=== PATIENT | male | born 1955 | race Caucasian/White ===

== ENCOUNTER 2020-02-20 17:02 | Inpatient (IN) | payer MEDICARE ==
[~2020-02-20] VITALS: Ht 165.1 cm; Wt 72.6 kg
[2020-02-20 18:10] LABS: BASOPHILS % 0.6 % (0.0-2.0); EOSINOPHILS % 1.5 % (0.0-5.0); HEMATOCRIT. 39.4 % (42.0-52.0); HEMOGLOBIN. 13.4 g/dL (14.0-18.0); LYMPHOCYTES % 27.2 % (20.0-50.0); MEAN CORPUSCULAR HEMOGLOBIN 27.9 pg (28.0-32.0); MEAN CORPUSCULAR VOLUME 81.7 fL (80.0-94.0); MONOCYTES % 5.1 % (2.0-8.0); NEUTROPHILS % 65.6 % (40.0-76.0); PLATELET 167 x1000/uL (130-400); RED BLOOD CELL COUNT 4.82 mill/uL (4.7-6.1); RED CELL DISTRIBUTION WIDTH 14.4 % (11.6-14.6)
[2020-02-20 18:16] LABS: CHLORIDE 104 mEq/L (98-107)
[2020-02-20 18:19] LABS: ETHANOL BLOOD < 10 mg/dL
[2020-02-20 18:24] LABS: CREATINE KINASE 109 IU/L (39-308)
[2020-02-20] MEDS ORDERED: DEXAMETHASONE 10 MG/ML VIAL IV ONE (20:45)
[2020-02-20] MEDS ORDERED: LEVETIRACETAM 500MG PREMIX 100 ML IV ONE (20:45)
[2020-02-20] MEDS ORDERED: NICARDIPINE 100 MG in SODIUM CHLORIDE 0.9% 60 ML IV PRN (21:00)
[2020-02-20 21:10] LABS: CLARITY URINE CLEAR (CLEAR); COLOR URINE YELLOW (YELLOW); KETONES URINE NEGATIVE (NEGATIVE); LEUKOCYTE ESTERASE URINE NEGATIVE (NEGATIVE); NITRITE URINE NEGATIVE (NEGATIVE); OCCULT BLOOD URINE NEGATIVE (NEGATIVE); PROTEIN URINE NEGATIVE (NEGATIVE); SPECIFIC GRAVITY URINE 1.021 (1.005-1.030); UROBILINOGEN URINE 0.2 E.U./dL (0.2-1.0)
[2020-02-20 21:19] LABS: *AMPHETAMINES SCREEN URINE NEGATIVE (NEGATIVE); *BARBITURATES SCREEN URINE NEGATIVE (NEGATIVE); *BENZODIAZEPINES SCREEN URINE NEGATIVE (NEGATIVE); *COCAINE SCREEN URINE NEGATIVE (NEGATIVE); METHADONE URINE SCREEN NEGATIVE (NEGATIVE); OPIATES URINE SCREEN NEGATIVE (NEGATIVE)
[2020-02-20 21:20] LABS: CANNABINOID URINE SCREEN NEGATIVE (NEGATIVE); PHENCYCLIDINE URINE SCREEN NEGATIVE (NEGATIVE)
[2020-02-20] MEDS ORDERED: IOHEXOL-350 100 ML BOTTLE ONE (21:46)
[2020-02-20] MEDS: DEXT 5%/LACTATED RINGERS 1,000 ML IV SCH (22:34)
[2020-02-20] MEDS: NICARDIPINE 100 MG in SODIUM CHLORIDE 0.9% 60 ML IV PRN (23:13)
[2020-02-21] VITALS (96 sets, daily range): BP systolic 80–160; BP diastolic 44–120
[2020-02-21] MEDS: INSULIN LISPRO 100 UNITS/ML SUBCUT SCH ×5 (00:49→23:20)
[2020-02-21] MEDS: BLOOD SUGAR DIAGNOSTIC STRIP TEST SCH ×5 (00:49→23:13)
[2020-02-21] MEDS: DEXAMETHASONE 4MG/ML 1ML VIAL IV SCH ×5 (00:49→23:17)
[2020-02-21] MEDS: MORPHINE SULFATE 2 MG/ML CPJ (NOT FOR IM USE) IV PRN ×2 (05:42→23:17)
[2020-02-21] MEDS ORDERED: LEVETIRACETAM 500MG PREMIX 100 ML IV SCH (09:00)
[2020-02-21] MEDS ORDERED: GADOTERATE MEGLUMINE 5 MMOL/10 ML VIAL IV ONE (09:33)
[2020-02-21] MEDS: LEVETIRACETAM 500MG PREMIX 100 ML IV SCH ×2 (10:13→20:36)
[2020-02-21] MEDS: DEXT 5%/LACTATED RINGERS 1,000 ML IV SCH (12:40)
[2020-02-21 13:13] LABS: INR 1.2; PROTHROMBIN TIME 12.2 sec (9.6-11.0)
[2020-02-21] MEDS ORDERED: MAGNESIUM/ALUMINUM HYDROXIDE/SIMETHICONE 30ML UDC PO PRN (13:15)
[2020-02-21] MEDS ORDERED: CLONIDINE 0.1MG TABLET PO PRN (13:15)
[2020-02-21] MEDS ORDERED: BLOOD SUGAR DIAGNOSTIC STRIP TEST SCH (16:30)
[2020-02-21] MEDS: METOPROLOL TARTRATE 25MG TABLET PO SCH (20:36)
[2020-02-21 21:03] LABS: HEMATOCRIT 40.1 % (42.0-52.0); HEMOGLOBIN 13.7 g/dL (14.0-18.0); MEAN CORPUSCULAR HEMOGLOBIN 28.1 pg (28.0-32.0); MEAN CORPUSCULAR VOLUME 82.3 fL (80.0-94.0); PLATELET 178 x1000/uL (130-400); RED BLOOD CELL COUNT 4.87 mill/uL (4.7-6.1); RED CELL DISTRIBUTION WIDTH 14.1 % (11.6-14.6)
[2020-02-21 21:16] LABS: CHLORIDE 104 mEq/L (98-107)
[2020-02-22] VITALS (65 sets, daily range): BP systolic 97–153; BP diastolic 49–92
[2020-02-22 04:57] LABS: BASOPHILS % 0.1 % (0.0-2.0); HEMATOCRIT. 38.3 % (42.0-52.0); MEAN CORPUSCULAR VOLUME 82.3 fL (80.0-94.0); MEAN PLATELET VOLUME 8.3 fl (7.4-10.4); MONOCYTES % 3.5 % (2.0-8.0); NEUTROPHILS % 86.4 % (40.0-76.0); PLATELET 182 x1000/uL (130-400); RED BLOOD CELL COUNT 4.65 mill/uL (4.7-6.1); RED CELL DISTRIBUTION WIDTH 14.3 % (11.6-14.6)
[2020-02-22 05:07] LABS: CHLORIDE 105 mEq/L (98-107)
[2020-02-22] MEDS: BLOOD SUGAR DIAGNOSTIC STRIP TEST SCH ×4 (05:11→23:21)
[2020-02-22 05:14] LABS: LDL CHOLESTEROL 167 mg/dL (5-100); PHOSPHORUS 3.4 mg/dL (2.5-4.9)
[2020-02-22 05:16] LABS: HDL CHOLESTEROL 48 mg/dL (40-59)
[2020-02-22] MEDS: DEXAMETHASONE 4MG/ML 1ML VIAL IV SCH ×4 (05:18→23:32)
[2020-02-22] MEDS: DEXT 5%/LACTATED RINGERS 1,000 ML IV SCH ×2 (05:18→23:33)
[2020-02-22] MEDS: INSULIN LISPRO 100 UNITS/ML SUBCUT SCH ×4 (05:20→23:34)
[2020-02-22] MEDS: PANTOPRAZOLE SODIUM 40 MG/VIAL IV SCH (09:25)
[2020-02-22] MEDS: LEVETIRACETAM 500MG PREMIX 100 ML IV SCH ×2 (09:25→20:28)
[2020-02-22] MEDS: METOPROLOL TARTRATE 25MG TABLET PO SCH ×2 (09:30→20:28)
[2020-02-22 20:11] LABS: INR 1.2; PARTIAL THROMBOPLASTIN TIME 25.9 sec (23.4-31.0); PROTHROMBIN TIME 12.2 sec (9.6-11.0)
[2020-02-22] MEDS ORDERED: MAGNESIUM 4 G PREMIX 100 ML IV SCH (22:30)
[2020-02-22] MEDS: MORPHINE SULFATE 2 MG/ML CPJ (NOT FOR IM USE) IV PRN (23:33)
[2020-02-23] VITALS (78 sets, daily range): BP systolic 101–152; BP diastolic 42–89
[2020-02-23 04:58] LABS: BASOPHILS % 0.1 % (0.0-2.0); HEMATOCRIT. 38.7 % (42.0-52.0); HEMOGLOBIN. 13.4 g/dL (14.0-18.0); LYMPHOCYTES % 10.4 % (20.0-50.0); MEAN CORPUSCULAR HEMOGLOBIN 28.3 pg (28.0-32.0); MEAN CORPUSCULAR VOLUME 81.8 fL (80.0-94.0); MEAN PLATELET VOLUME 8.1 fl (7.4-10.4); MONOCYTES % 5.6 % (2.0-8.0); NEUTROPHILS % 83.9 % (40.0-76.0); PLATELET 190 x1000/uL (130-400); RED BLOOD CELL COUNT 4.72 mill/uL (4.7-6.1); RED CELL DISTRIBUTION WIDTH 14.1 % (11.6-14.6)
[2020-02-23 05:07] LABS: CHLORIDE 103 mEq/L (98-107)
[2020-02-23] MEDS: BLOOD SUGAR DIAGNOSTIC STRIP TEST SCH ×4 (05:38→23:02)
[2020-02-23] MEDS: DEXAMETHASONE 4MG/ML 1ML VIAL IV SCH ×4 (05:46→23:00)
[2020-02-23] MEDS: INSULIN LISPRO 100 UNITS/ML SUBCUT SCH ×4 (05:49→23:01)
[2020-02-23] MEDS ORDERED: THROMBIN (BOVINE) 5000 UNITS/VIAL TOP ONE ×2 (07:03→07:04)
[2020-02-23] MEDS ORDERED: BACITRACIN 15GM TUBE TOP ONE (07:03)
[2020-02-23] MEDS ORDERED: SODIUM CHLORIDE 0.9% INJ 10ML FLUSH IVF ONE (07:04)
[2020-02-23] MEDS ORDERED: BACITRACIN 50,000 UNITS/VIAL ONE (07:04)
[2020-02-23] MEDS: PANTOPRAZOLE SODIUM 40 MG/VIAL IV SCH (08:50)
[2020-02-23] MEDS: LEVETIRACETAM 500MG PREMIX 100 ML IV SCH ×2 (08:50→20:27)
[2020-02-23] MEDS: METOPROLOL TARTRATE 25MG TABLET PO SCH ×2 (08:51→20:41)
[2020-02-23] MEDS ORDERED: ROCURONIUM BROMIDE 10MG/ML VIAL 5ML IV ONE (09:38)
[2020-02-23] MEDS ORDERED: PROPOFOL 200MG/20ML VIAL IV ONE (09:38)
[2020-02-23] MEDS ORDERED: NICARDIPINE 100 MG in SODIUM CHLORIDE 0.9% 60 ML IV PRN (09:45)
[2020-02-23] MEDS ORDERED: MANNITOL 20% 500 ML IV ONE (09:46)
[2020-02-23] MEDS ORDERED: ALBUMIN HUMAN 12.5GM/50ML (25%) IV ONE (10:28)
[2020-02-23] MEDS ORDERED: ALBUMIN HUMAN 12.5G/250ML (5%) IV ONE (10:29)
[2020-02-23] MEDS ORDERED: POTASSIUM CHLORIDE 40MEQ/20ML INJ IV ONE (10:41)
[2020-02-23] MEDS ORDERED: MAGNESIUM SULFATE 5GM/10ML VIAL IV ONE (10:43)
[2020-02-23] MEDS ORDERED: HYDRALAZINE 20MG/ML VIAL ONE (11:21)
[2020-02-23] MEDS ORDERED: METOPROLOL TARTRATE 5MG/5ML VIAL IV ONE (11:22)
[2020-02-23] MEDS ORDERED: HYDROMORPHONE HCL/PF 2MG/ML (OR) ONE (11:22)
[2020-02-23] MEDS: NICARDIPINE 100 MG in SODIUM CHLORIDE 0.9% 60 ML IV PRN (11:51)
[2020-02-23] MEDS ORDERED: IPRATROPIUM/ALBUTEROL 0.5-3(2.5)MG/3ML NEB HHN PRN (12:00)
[2020-02-23] MEDS: MORPHINE SULFATE 4 MG/ML CPJ (NOT FOR IM USE) IV PRN ×4 (12:02→20:00)
[2020-02-23 12:54] LABS: BG BASE EXCESS -3.4 mmol/L (-2.0-2.0); BG CARBOXYHEMOGLOBIN 0.7 % (0.5-1.5); BG DEOXYHEMOGLOBIN 1.1 % (0.0-5.0); BG FRACTION INSPIRED OXYGEN 60; BG HCO3 ACT 20.7 mmol/L (22.0-26.0); BG METHEMOGLOBIN 0.1 % (0.0-1.5); BG OXYGEN SATURATION 98.9 % (92.0-98.5); BG OXYHEMOGLOBIN 98.1 % (94.0-97.0); BG PCO2 34.6 mmHg (35.0-45.0); BG PH 7.395 (7.350-7.450); BG PO2 175.5 mmHg (75.0-100.0); BG SAMPLE SITE ALINE; BG TOTAL HEMOGLOBIN 14.4 g/dL (12.0-18.0); BG VENT MODE MASK - SIMPLE
[2020-02-23] MEDS ORDERED: CEFAZOLIN SODIUM 1000MG/VIAL IV SCH (14:00)
[2020-02-23] MEDS: CEFAZOLIN 1000MG PREMIX 50 ML IV SCH ×2 (14:15→22:16)
[2020-02-23] MEDS: NITROGLYCERIN OINT 1GM/INCH UDPKT TD SCH ×2 (15:43→22:16)
[2020-02-23] MEDS: DEXT 5%/LACTATED RINGERS 1,000 ML IV SCH (15:48)
[2020-02-23] MEDS ORDERED: INSULIN LISPRO 100 UNITS/ML SUBCUT NR (17:45)
[2020-02-23] MEDS ORDERED: NEOMY SULF/BACITRAC ZN/POLY OINT 28GM TOP NR (20:00)
[2020-02-23] MEDS ORDERED: NEOMYCIN/BACITRACIN/POLYMYXIN OINT 14GM TOP SCH (22:00)
[2020-02-23] MEDS: INSULIN GLARGINE UD 100 UNITS/ML SYR SUBCUT SCH (23:02)
[2020-02-24] VITALS (97 sets, daily range): BP systolic 102–150; BP diastolic 39–121
[2020-02-24] MEDS: MORPHINE SULFATE 4 MG/ML CPJ (NOT FOR IM USE) IV PRN ×7 (02:04→20:36)
[2020-02-24] MEDS: NICARDIPINE 100 MG in SODIUM CHLORIDE 0.9% 60 ML IV PRN ×2 (03:10→15:28)
[2020-02-24] MEDS: CEFAZOLIN 1000MG PREMIX 50 ML IV SCH ×3 (05:21→22:25)
[2020-02-24] MEDS: NITROGLYCERIN OINT 1GM/INCH UDPKT TD SCH ×3 (05:21→22:27)
[2020-02-24] MEDS: DEXAMETHASONE 4MG/ML 1ML VIAL IV SCH ×4 (05:21→23:59)
[2020-02-24] MEDS: INSULIN LISPRO 100 UNITS/ML SUBCUT SCH ×3 (05:22→17:31)
[2020-02-24] MEDS: BLOOD SUGAR DIAGNOSTIC STRIP TEST SCH ×4 (05:22→23:59)
[2020-02-24 05:41] LABS: HEMATOCRIT. 28.9 % (42.0-52.0); HEMOGLOBIN. 9.9 g/dL (14.0-18.0); MEAN CORPUSCULAR HEMOGLOBIN 28.1 pg (28.0-32.0); MEAN CORPUSCULAR VOLUME 82.2 fL (80.0-94.0); PLATELET 161 x1000/uL (130-400); RED BLOOD CELL COUNT 3.52 mill/uL (4.7-6.1); RED CELL DISTRIBUTION WIDTH 14.3 % (11.6-14.6)
[2020-02-24 05:50] LABS: CHLORIDE 111 mEq/L (98-107)
[2020-02-24 08:05] LABS: PLATELET ESTIMATE NORMAL
[2020-02-24] MEDS: METOPROLOL TARTRATE 25MG TABLET PO SCH ×3 (09:00→21:00)
[2020-02-24] MEDS: PANTOPRAZOLE SODIUM 40 MG/VIAL IV SCH (09:03)
[2020-02-24] MEDS: LEVETIRACETAM 500MG PREMIX 100 ML IV SCH ×2 (09:03→20:02)
[2020-02-24] MEDS: DEXT 5%/LACTATED RINGERS 1,000 ML IV SCH (09:04)
[2020-02-24] MEDS: INSULIN GLARGINE UD 100 UNITS/ML SYR SUBCUT SCH ×2 (09:04→22:25)
[2020-02-24] MEDS ORDERED: KCL 20MEQ/100ML PREMIX 100 ML IV SCH (12:00)
[2020-02-24] MEDS: ONDANSETRON HCL 4MG/2ML INJ IV PRN (23:01)
[2020-02-25] VITALS (100 sets, daily range): BP systolic 79–154; BP diastolic 41–90
[2020-02-25] MEDS: INSULIN LISPRO 100 UNITS/ML SUBCUT SCH ×5 (00:01→17:46)
[2020-02-25] MEDS: MORPHINE SULFATE 4 MG/ML CPJ (NOT FOR IM USE) IV PRN ×3 (02:35→15:27)
[2020-02-25] MEDS: NICARDIPINE 100 MG in SODIUM CHLORIDE 0.9% 60 ML IV PRN ×2 (02:40→14:13)
[2020-02-25] MEDS: DEXT 5%/LACTATED RINGERS 1,000 ML IV SCH (04:35)
[2020-02-25 05:39] LABS: HEMATOCRIT. 36.1 % (42.0-52.0); HEMOGLOBIN. 12.2 g/dL (14.0-18.0); MEAN CORPUSCULAR HEMOGLOBIN 28.4 pg (28.0-32.0); MEAN CORPUSCULAR VOLUME 84.2 fL (80.0-94.0); MEAN PLATELET VOLUME 8.3 fl (7.4-10.4); PLATELET 196 x1000/uL (130-400); RED BLOOD CELL COUNT 4.29 mill/uL (4.7-6.1); RED CELL DISTRIBUTION WIDTH 14.6 % (11.6-14.6)
[2020-02-25 05:41] LABS: CHLORIDE 110 mEq/L (98-107)
[2020-02-25] MEDS: CEFAZOLIN 1000MG PREMIX 50 ML IV SCH ×2 (05:52→14:16)
[2020-02-25] MEDS: NITROGLYCERIN OINT 1GM/INCH UDPKT TD SCH ×3 (05:53→21:22)
[2020-02-25] MEDS: BLOOD SUGAR DIAGNOSTIC STRIP TEST SCH ×3 (05:53→17:40)
[2020-02-25] MEDS: DEXAMETHASONE 4MG/ML 1ML VIAL IV SCH ×3 (05:53→17:40)
[2020-02-25] MEDS: PANTOPRAZOLE SODIUM 40 MG/VIAL IV SCH (08:08)
[2020-02-25] MEDS: LEVETIRACETAM 500MG PREMIX 100 ML IV SCH ×2 (08:11→21:23)
[2020-02-25] MEDS: METOPROLOL TARTRATE 25MG TABLET PO SCH ×2 (09:00→21:22)
[2020-02-25] MEDS: INSULIN GLARGINE UD 100 UNITS/ML SYR SUBCUT SCH ×2 (09:37→22:38)
[2020-02-25] MEDS: LACTATED RINGERS 1,000 ML IV SCH (11:02)
[2020-02-25 15:16] LABS: NUCLEATED RED BLOOD CELLS 1 /100 WBC; PLATELET ESTIMATE NORMAL
[2020-02-25] MEDS: PHENOL/SODIUM PHENOLATE 1.4% SRPAY 177ML MM PRN (22:49)
[2020-02-26] VITALS (87 sets, daily range): BP systolic 111–162; BP diastolic 49–116
[2020-02-26] MEDS: DEXAMETHASONE 4MG/ML 1ML VIAL IV SCH ×2 (00:28→05:50)
[2020-02-26] MEDS: MORPHINE SULFATE 4 MG/ML CPJ (NOT FOR IM USE) IV PRN ×3 (00:29→11:40)
[2020-02-26] MEDS: INSULIN LISPRO 100 UNITS/ML SUBCUT SCH ×5 (00:30→23:54)
[2020-02-26] MEDS ORDERED: NEOMYCIN/BACITRACIN/POLYMYXIN OINT 14GM TOP NR (03:00)
[2020-02-26 05:18] LABS: BASOPHILS % 0.1 % (0.0-2.0); HEMATOCRIT. 37.6 % (42.0-52.0); HEMOGLOBIN. 12.7 g/dL (14.0-18.0); LYMPHOCYTES % 7.8 % (20.0-50.0); MEAN CORPUSCULAR HEMOGLOBIN 28.3 pg (28.0-32.0); MEAN CORPUSCULAR VOLUME 83.7 fL (80.0-94.0); NEUTROPHILS % 85.1 % (40.0-76.0); PLATELET 209 x1000/uL (130-400); RED BLOOD CELL COUNT 4.49 mill/uL (4.7-6.1); RED CELL DISTRIBUTION WIDTH 14.3 % (11.6-14.6)
[2020-02-26 05:22] LABS: CHLORIDE 113 mEq/L (98-107)
[2020-02-26] MEDS: BLOOD SUGAR DIAGNOSTIC STRIP TEST SCH ×5 (05:47→23:48)
[2020-02-26] MEDS: PHENOL/SODIUM PHENOLATE 1.4% SRPAY 177ML MM PRN (05:50)
[2020-02-26] MEDS: NITROGLYCERIN OINT 1GM/INCH UDPKT TD SCH ×3 (05:50→21:27)
[2020-02-26] MEDS: LACTATED RINGERS 1,000 ML IV SCH ×2 (05:55→21:04)
[2020-02-26] MEDS: PANTOPRAZOLE SODIUM 40 MG/VIAL IV SCH (08:20)
[2020-02-26] MEDS: METOPROLOL TARTRATE 25MG TABLET PO SCH ×2 (08:21→21:26)
[2020-02-26] MEDS: LEVETIRACETAM 500MG PREMIX 100 ML IV SCH ×2 (08:21→21:26)
[2020-02-26] MEDS: INSULIN GLARGINE UD 100 UNITS/ML SYR SUBCUT SCH ×2 (10:36→21:30)
[2020-02-26] MEDS ORDERED: LOSARTAN POTASSIUM 100 MG TABLET PO SCH (11:00)
[2020-02-26] MEDS ORDERED: AMLODIPINE 10MG TABLET PO SCH (11:00)
[2020-02-26] MEDS: AMLODIPINE 5MG TABLET PO SCH ×2 (11:22→21:26)
[2020-02-26] MEDS: LOSARTAN POTASSIUM 50 MG TABLET PO SCH ×2 (11:22→21:26)
[2020-02-26] MEDS: NICARDIPINE 100 MG in SODIUM CHLORIDE 0.9% 60 ML IV PRN (11:26)
[2020-02-26] MEDS: HYDROCODONE/ACETAMINOPHEN 10/325MG TABLET PO PRN (16:18)
[2020-02-26] MEDS: DOCUSATE SODIUM SUGAR FREE 100MG/10ML UDC NG SCH (17:09)
[2020-02-26] MEDS: MORPHINE SULFATE 2 MG/ML CPJ (NOT FOR IM USE) IV PRN (22:34)
[2020-02-27] VITALS (89 sets, daily range): BP systolic 101–163; BP diastolic 59–99
[2020-02-27] MEDS: ONDANSETRON HCL 4MG/2ML INJ IV PRN (00:34)
[2020-02-27] MEDS: HYDROCODONE/ACETAMINOPHEN 10/325MG TABLET PO PRN ×2 (03:29→08:29)
[2020-02-27 04:37] LABS: HEMATOCRIT. 36.5 % (42.0-52.0); HEMOGLOBIN. 12.5 g/dL (14.0-18.0); MEAN CORPUSCULAR HEMOGLOBIN 28.5 pg (28.0-32.0); MEAN CORPUSCULAR VOLUME 82.9 fL (80.0-94.0); MEAN PLATELET VOLUME 7.6 fl (7.4-10.4); PLATELET 215 x1000/uL (130-400); RED CELL DISTRIBUTION WIDTH 14.1 % (11.6-14.6)
[2020-02-27 04:42] LABS: CHLORIDE 112 mEq/L (98-107)
[2020-02-27] MEDS: BLOOD SUGAR DIAGNOSTIC STRIP TEST SCH ×4 (05:16→23:57)
[2020-02-27] MEDS: NITROGLYCERIN OINT 1GM/INCH UDPKT TD SCH ×3 (05:21→21:53)
[2020-02-27] MEDS: INSULIN LISPRO 100 UNITS/ML SUBCUT SCH ×4 (05:22→23:57)
[2020-02-27] MEDS: DOCUSATE SODIUM SUGAR FREE 100MG/10ML UDC NG SCH ×2 (08:28→16:13)
[2020-02-27] MEDS: PANTOPRAZOLE SODIUM 40 MG/VIAL IV SCH (08:28)
[2020-02-27] MEDS: AMLODIPINE 5MG TABLET PO SCH ×2 (08:28→21:52)
[2020-02-27] MEDS: METOPROLOL TARTRATE 25MG TABLET PO SCH ×2 (08:28→21:51)
[2020-02-27] MEDS: LOSARTAN POTASSIUM 50 MG TABLET PO SCH ×2 (08:28→21:52)
[2020-02-27] MEDS: LEVETIRACETAM 500MG PREMIX 100 ML IV SCH ×2 (08:29→21:48)
[2020-02-27] MEDS: INSULIN GLARGINE UD 100 UNITS/ML SYR SUBCUT SCH ×2 (10:33→21:52)
[2020-02-27 11:19] LABS: PLATELET ESTIMATE NORMAL
[2020-02-27] MEDS: LACTATED RINGERS 1,000 ML IV SCH (11:56)
[2020-02-27] MEDS: MORPHINE SULFATE 2 MG/ML CPJ (NOT FOR IM USE) IV PRN (13:22)
[2020-02-28] VITALS (42 sets, daily range): BP systolic 85–160; BP diastolic 48–89
[2020-02-28] MEDS: HYDROCODONE/ACETAMINOPHEN 10/325MG TABLET PO PRN ×3 (00:23→14:18)
[2020-02-28] MEDS: LACTATED RINGERS 1,000 ML IV SCH (04:52)
[2020-02-28] MEDS: INSULIN LISPRO 100 UNITS/ML SUBCUT SCH ×3 (06:00→17:33)
[2020-02-28] MEDS: BLOOD SUGAR DIAGNOSTIC STRIP TEST SCH ×3 (06:27→17:33)
[2020-02-28] MEDS: NITROGLYCERIN OINT 1GM/INCH UDPKT TD SCH ×2 (06:28→14:19)
[2020-02-28] MEDS: DEXTROSE 50% WATER 50ML SYRINGE IV PRN ×2 (06:29→22:12)
[2020-02-28] MEDS: PANTOPRAZOLE SODIUM 40 MG/VIAL IV SCH (10:04)
[2020-02-28] MEDS: DOCUSATE SODIUM SUGAR FREE 100MG/10ML UDC NG SCH ×2 (10:04→17:33)
[2020-02-28] MEDS: AMLODIPINE 5MG TABLET PO SCH ×2 (10:05→20:10)
[2020-02-28] MEDS: LOSARTAN POTASSIUM 50 MG TABLET PO SCH ×2 (10:05→20:09)
[2020-02-28] MEDS: METOPROLOL TARTRATE 25MG TABLET PO SCH ×2 (10:06→20:10)
[2020-02-28] MEDS: LEVETIRACETAM 500MG PREMIX 100 ML IV SCH ×2 (10:06→20:09)
[2020-02-28] MEDS: INSULIN GLARGINE UD 100 UNITS/ML SYR SUBCUT SCH ×2 (10:09→21:37)
[2020-02-28] MEDS ORDERED: GADOTERATE MEGLUMINE 5 MMOL/10 ML VIAL IV ONE (10:23)
[2020-02-28] MEDS: ACETAMINOPHEN 325MG TABLET PO PRN (14:18)
[2020-02-29] VITALS (14 sets, daily range): BP systolic 124–158; BP diastolic 45–91
[2020-02-29] MEDS: NITROGLYCERIN OINT 1GM/INCH UDPKT TD SCH ×4 (00:13→21:43)
[2020-02-29] MEDS: LACTATED RINGERS 1,000 ML IV SCH ×2 (00:14→13:58)
[2020-02-29] MEDS: BLOOD SUGAR DIAGNOSTIC STRIP TEST SCH ×4 (00:14→17:11)
[2020-02-29] MEDS: INSULIN LISPRO 100 UNITS/ML SUBCUT SCH ×4 (06:00→17:11)
[2020-02-29 06:26] LABS: BASOPHILS % 0.1 % (0.0-2.0); EOSINOPHILS % 0.7 % (0.0-5.0); HEMATOCRIT. 40.6 % (42.0-52.0); LYMPHOCYTES % 13.3 % (20.0-50.0); MEAN CORPUSCULAR HEMOGLOBIN 28.1 pg (28.0-32.0); MEAN CORPUSCULAR VOLUME 81.4 fL (80.0-94.0); MEAN PLATELET VOLUME 7.7 fl (7.4-10.4); MONOCYTES % 8.6 % (2.0-8.0); NEUTROPHILS % 77.3 % (40.0-76.0); PLATELET 171 x1000/uL (130-400); RED BLOOD CELL COUNT 4.99 mill/uL (4.7-6.1); RED CELL DISTRIBUTION WIDTH 13.9 % (11.6-14.6)
[2020-02-29 06:42] LABS: CHLORIDE 101 mEq/L (98-107)
[2020-02-29] MEDS: LEVETIRACETAM 500MG PREMIX 100 ML IV SCH ×2 (08:59→21:48)
[2020-02-29] MEDS: DOCUSATE SODIUM SUGAR FREE 100MG/10ML UDC NG SCH ×2 (09:00→16:24)
[2020-02-29] MEDS: METOPROLOL TARTRATE 25MG TABLET PO SCH (09:00)
[2020-02-29] MEDS: LOSARTAN POTASSIUM 50 MG TABLET PO SCH ×2 (09:00→21:46)
[2020-02-29] MEDS: PANTOPRAZOLE SODIUM 40 MG/VIAL IV SCH (09:00)
[2020-02-29] MEDS: AMLODIPINE 5MG TABLET PO SCH ×2 (09:01→21:46)
[2020-02-29] MEDS: ACETAMINOPHEN 325MG TABLET PO PRN (09:01)
[2020-02-29] MEDS: INSULIN GLARGINE UD 100 UNITS/ML SYR SUBCUT SCH (09:03)
[2020-02-29] MEDS: ONDANSETRON HCL 4MG/2ML INJ IV PRN (09:11)
[2020-02-29] MEDS ORDERED: LACTULOSE 20G/30ML UDC PO SCH (12:30)
[2020-02-29] MEDS: HYDROCODONE/ACETAMINOPHEN 10/325MG TABLET PO PRN (16:26)
[2020-02-29] MEDS: METOPROLOL TARTRATE 100MG TABLET PO SCH (21:45)
[2020-03-01] VITALS (13 sets, daily range): BP systolic 114–147; BP diastolic 45–84
[2020-03-01] MEDS: INSULIN LISPRO 100 UNITS/ML SUBCUT SCH ×4 (00:54→17:52)
[2020-03-01] MEDS: BLOOD SUGAR DIAGNOSTIC STRIP TEST SCH ×4 (00:54→18:50)
[2020-03-01 05:59] LABS: CHLORIDE 101 mEq/L (98-107)
[2020-03-01 06:50] LABS: BASOPHILS % 0.2 % (0.0-2.0); EOSINOPHILS % 0.7 % (0.0-5.0); HEMATOCRIT. 40.6 % (42.0-52.0); HEMOGLOBIN. 13.8 g/dL (14.0-18.0); LYMPHOCYTES % 14.7 % (20.0-50.0); MEAN CORPUSCULAR HEMOGLOBIN 27.8 pg (28.0-32.0); MEAN CORPUSCULAR VOLUME 81.4 fL (80.0-94.0); MONOCYTES % 9.1 % (2.0-8.0); NEUTROPHILS % 75.3 % (40.0-76.0); RED BLOOD CELL COUNT 4.99 mill/uL (4.7-6.1); RED CELL DISTRIBUTION WIDTH 13.9 % (11.6-14.6)
[2020-03-01] MEDS: NITROGLYCERIN OINT 1GM/INCH UDPKT TD SCH ×3 (06:55→23:22)
[2020-03-01] MEDS: AMLODIPINE 5MG TABLET PO SCH ×2 (09:00→21:49)
[2020-03-01] MEDS: LEVETIRACETAM 500MG PREMIX 100 ML IV SCH ×2 (09:00→21:13)
[2020-03-01] MEDS: DOCUSATE SODIUM SUGAR FREE 100MG/10ML UDC NG SCH ×2 (09:00→17:51)
[2020-03-01] MEDS: PANTOPRAZOLE SODIUM 40 MG/VIAL IV SCH (09:00)
[2020-03-01] MEDS: LOSARTAN POTASSIUM 50 MG TABLET PO SCH ×2 (09:01→21:13)
[2020-03-01] MEDS: METOPROLOL TARTRATE 100MG TABLET PO SCH ×2 (09:01→21:12)
[2020-03-01 09:36] LABS: PLATELET 190 x1000/uL (130-400)
[2020-03-01] MEDS: LACTATED RINGERS 1,000 ML IV SCH (11:02)
[2020-03-02] VITALS (12 sets, daily range): BP systolic 103–142; BP diastolic 56–86
[2020-03-02] MEDS: INSULIN LISPRO 100 UNITS/ML SUBCUT SCH ×4 (01:12→17:54)
[2020-03-02] MEDS: LACTATED RINGERS 1,000 ML IV SCH ×2 (03:49→21:55)
[2020-03-02] MEDS: BLOOD SUGAR DIAGNOSTIC STRIP TEST SCH ×5 (06:00→23:56)
[2020-03-02] MEDS: NITROGLYCERIN OINT 1GM/INCH UDPKT TD SCH ×3 (06:06→21:40)
[2020-03-02 06:34] LABS: BASOPHILS % 0.3 % (0.0-2.0); EOSINOPHILS % 0.4 % (0.0-5.0); HEMATOCRIT. 40.3 % (42.0-52.0); HEMOGLOBIN. 13.7 g/dL (14.0-18.0); MEAN CORPUSCULAR HEMOGLOBIN 27.6 pg (28.0-32.0); MEAN CORPUSCULAR VOLUME 81.4 fL (80.0-94.0); MEAN PLATELET VOLUME 8.2 fl (7.4-10.4); MONOCYTES % 9.8 % (2.0-8.0); NEUTROPHILS % 74.5 % (40.0-76.0); PLATELET 229 x1000/uL (130-400); RED BLOOD CELL COUNT 4.96 mill/uL (4.7-6.1); RED CELL DISTRIBUTION WIDTH 13.8 % (11.6-14.6)
[2020-03-02 06:44] LABS: CHLORIDE 101 mEq/L (98-107)
[2020-03-02] MEDS: LEVETIRACETAM 500MG PREMIX 100 ML IV SCH ×2 (08:26→20:26)
[2020-03-02] MEDS: PANTOPRAZOLE SODIUM 40 MG/VIAL IV SCH ×2 (08:26→20:25)
[2020-03-02] MEDS: DOCUSATE SODIUM SUGAR FREE 100MG/10ML UDC NG SCH ×2 (08:26→17:00)
[2020-03-02] MEDS: LOSARTAN POTASSIUM 50 MG TABLET PO SCH ×2 (08:26→20:25)
[2020-03-02] MEDS: AMLODIPINE 5MG TABLET PO SCH ×2 (08:27→20:26)
[2020-03-02] MEDS: METOPROLOL TARTRATE 100MG TABLET PO SCH ×2 (09:15→21:41)
[2020-03-02] MEDS ORDERED: CEFAZOLIN 1000MG PREMIX 50 ML IV ONE (16:00)
[2020-03-02 16:05] LABS: CLARITY URINE CLEAR (CLEAR); COLOR URINE DARK YELLOW (YELLOW); KETONES URINE TRACE (NEGATIVE); LEUKOCYTE ESTERASE URINE NEGATIVE (NEGATIVE); NITRITE URINE NEGATIVE (NEGATIVE); OCCULT BLOOD URINE NEGATIVE (NEGATIVE); PROTEIN URINE TRACE (NEGATIVE); SPECIFIC GRAVITY URINE 1.027 (1.005-1.030)
[2020-03-02] MEDS: PHENOL/SODIUM PHENOLATE 1.4% SRPAY 177ML MM PRN (19:43)
[2020-03-02] MEDS: INSULIN GLARGINE UD 100 UNITS/ML SYR SUBCUT SCH (21:54)
[2020-03-03] VITALS (12 sets, daily range): BP systolic 118–151; BP diastolic 65–83
[2020-03-03] MEDS: INSULIN LISPRO 100 UNITS/ML SUBCUT SCH ×5 (00:06→23:11)
[2020-03-03] MEDS: ACETAMINOPHEN 325MG TABLET PO PRN ×2 (00:29→23:32)
[2020-03-03] MEDS: ONDANSETRON HCL 4MG/2ML INJ IV PRN (01:48)
[2020-03-03] MEDS: NITROGLYCERIN OINT 1GM/INCH UDPKT TD SCH ×3 (05:27→21:27)
[2020-03-03] MEDS: BLOOD SUGAR DIAGNOSTIC STRIP TEST SCH ×4 (05:28→23:12)
[2020-03-03 07:01] LABS: INR 1.1; PROTHROMBIN TIME 11.5 sec (9.6-11.0)
[2020-03-03 07:08] LABS: BASOPHILS % 0.1 % (0.0-2.0); EOSINOPHILS % 0.9 % (0.0-5.0); HEMATOCRIT. 37.3 % (42.0-52.0); HEMOGLOBIN. 12.8 g/dL (14.0-18.0); LYMPHOCYTES % 14.4 % (20.0-50.0); MEAN CORPUSCULAR HEMOGLOBIN 27.7 pg (28.0-32.0); MEAN CORPUSCULAR VOLUME 80.9 fL (80.0-94.0); MEAN PLATELET VOLUME 8.3 fl (7.4-10.4); MONOCYTES % 9.3 % (2.0-8.0); NEUTROPHILS % 75.3 % (40.0-76.0); PLATELET 203 x1000/uL (130-400); RED BLOOD CELL COUNT 4.62 mill/uL (4.7-6.1); RED CELL DISTRIBUTION WIDTH 13.5 % (11.6-14.6)
[2020-03-03 07:36] LABS: CHLORIDE 104 mEq/L (98-107)
[2020-03-03] MEDS: PANTOPRAZOLE SODIUM 40 MG/VIAL IV SCH ×2 (08:37→21:26)
[2020-03-03] MEDS: LEVETIRACETAM 500MG PREMIX 100 ML IV SCH ×2 (08:37→21:26)
[2020-03-03] MEDS: PHENOL/SODIUM PHENOLATE 1.4% SRPAY 177ML MM PRN (08:44)
[2020-03-03] MEDS: LOSARTAN POTASSIUM 50 MG TABLET PO SCH ×2 (09:00→21:26)
[2020-03-03] MEDS: DOCUSATE SODIUM SUGAR FREE 100MG/10ML UDC NG SCH ×2 (09:00→17:00)
[2020-03-03] MEDS: METOPROLOL TARTRATE 100MG TABLET PO SCH ×2 (09:00→21:26)
[2020-03-03] MEDS: AMLODIPINE 5MG TABLET PO SCH ×2 (09:00→21:26)
[2020-03-03] MEDS: INSULIN GLARGINE UD 100 UNITS/ML SYR SUBCUT SCH ×2 (10:00→23:12)
[2020-03-03] MEDS ORDERED: CEFAZOLIN 1000MG PREMIX 50 ML IV NR (11:15)
[2020-03-03] MEDS: LACTATED RINGERS 1,000 ML IV SCH (14:14)
[2020-03-03] MEDS ORDERED: MIDAZOLAM HCL 5 MG/5 ML VIAL IV PRN (16:18)
[2020-03-03] MEDS ORDERED: FENTANYL CITRATE/PF 50MCG/ML 2ML VIAL ONE (16:19)
[2020-03-03] MEDS ORDERED: FENTANYL CITRATE/PF 50MCG/ML 2ML VIAL IV PRN (16:19)
[2020-03-03] MEDS ORDERED: MIDAZOLAM HCL 5 MG/5 ML VIAL ONE (16:19)
[2020-03-04] VITALS (12 sets, daily range): BP systolic 98–137; BP diastolic 53–91
[2020-03-04] MEDS: LACTATED RINGERS 1,000 ML IV SCH ×2 (02:05→19:09)
[2020-03-04] MEDS: BLOOD SUGAR DIAGNOSTIC STRIP TEST SCH ×3 (05:56→18:20)
[2020-03-04] MEDS: INSULIN LISPRO 100 UNITS/ML SUBCUT SCH ×3 (05:56→18:00)
[2020-03-04] MEDS: NITROGLYCERIN OINT 1GM/INCH UDPKT TD SCH ×3 (05:58→22:14)
[2020-03-04 06:24] LABS: EOSINOPHILS % 0.3 % (0.0-5.0); HEMOGLOBIN. 12.7 g/dL (14.0-18.0); LYMPHOCYTES % 11.1 % (20.0-50.0); MEAN CORPUSCULAR HEMOGLOBIN 28.3 pg (28.0-32.0); MEAN CORPUSCULAR VOLUME 80.2 fL (80.0-94.0); MEAN PLATELET VOLUME 7.9 fl (7.4-10.4); MONOCYTES % 8.5 % (2.0-8.0); NEUTROPHILS % 80.1 % (40.0-76.0); PLATELET 214 x1000/uL (130-400); RED BLOOD CELL COUNT 4.49 mill/uL (4.7-6.1); RED CELL DISTRIBUTION WIDTH 13.5 % (11.6-14.6)
[2020-03-04 06:37] LABS: CHLORIDE 103 mEq/L (98-107)
[2020-03-04] MEDS: METOPROLOL TARTRATE 100MG TABLET PO SCH ×2 (10:25→22:13)
[2020-03-04] MEDS: LOSARTAN POTASSIUM 50 MG TABLET PO SCH ×2 (10:25→22:13)
[2020-03-04] MEDS: LEVETIRACETAM 500MG PREMIX 100 ML IV SCH ×2 (10:25→22:14)
[2020-03-04] MEDS: PANTOPRAZOLE SODIUM 40 MG/VIAL IV SCH ×2 (10:26→22:13)
[2020-03-04] MEDS: AMLODIPINE 5MG TABLET PO SCH ×2 (10:26→22:13)
[2020-03-04] MEDS: DOCUSATE SODIUM SUGAR FREE 100MG/10ML UDC NG SCH ×2 (10:26→17:00)
[2020-03-04] MEDS: INSULIN GLARGINE UD 100 UNITS/ML SYR SUBCUT SCH (10:27)
[2020-03-04] MEDS: ACETAMINOPHEN 325MG TABLET PO PRN (22:12)
[2020-03-05] VITALS (12 sets, daily range): BP systolic 106–150; BP diastolic 47–82
[2020-03-05] MEDS: INSULIN LISPRO 100 UNITS/ML SUBCUT SCH ×4 (00:04→18:10)
[2020-03-05] MEDS: INSULIN GLARGINE UD 100 UNITS/ML SYR SUBCUT SCH ×3 (00:04→22:53)
[2020-03-05] MEDS: BLOOD SUGAR DIAGNOSTIC STRIP TEST SCH ×4 (00:04→18:09)
[2020-03-05] MEDS: HYDROCODONE/ACETAMINOPHEN 10/325MG TABLET PO PRN ×3 (00:09→18:08)
[2020-03-05] MEDS: NITROGLYCERIN OINT 1GM/INCH UDPKT TD SCH ×3 (06:00→22:51)
[2020-03-05 06:08] LABS: BASOPHILS % 0.2 % (0.0-2.0); EOSINOPHILS % 0.3 % (0.0-5.0); HEMOGLOBIN. 12.9 g/dL (14.0-18.0); LYMPHOCYTES % 11.8 % (20.0-50.0); MEAN CORPUSCULAR HEMOGLOBIN 27.6 pg (28.0-32.0); MEAN CORPUSCULAR VOLUME 81.6 fL (80.0-94.0); MEAN PLATELET VOLUME 7.9 fl (7.4-10.4); MONOCYTES % 8.2 % (2.0-8.0); NEUTROPHILS % 79.5 % (40.0-76.0); PLATELET 240 x1000/uL (130-400); RED BLOOD CELL COUNT 4.66 mill/uL (4.7-6.1); RED CELL DISTRIBUTION WIDTH 13.6 % (11.6-14.6)
[2020-03-05 06:10] LABS: CHLORIDE 101 mEq/L (98-107)
[2020-03-05] MEDS: LEVETIRACETAM 500MG PREMIX 100 ML IV SCH ×2 (08:43→20:19)
[2020-03-05] MEDS: PANTOPRAZOLE SODIUM 40 MG/VIAL IV SCH ×2 (08:43→20:19)
[2020-03-05] MEDS: DOCUSATE SODIUM SUGAR FREE 100MG/10ML UDC NG SCH ×2 (08:43→18:08)
[2020-03-05] MEDS: AMLODIPINE 5MG TABLET PO SCH ×2 (08:44→20:20)
[2020-03-05] MEDS: METOPROLOL TARTRATE 100MG TABLET PO SCH ×2 (08:44→20:20)
[2020-03-05] MEDS: LOSARTAN POTASSIUM 50 MG TABLET PO SCH ×2 (08:44→20:20)
[2020-03-05] MEDS: LACTATED RINGERS 1,000 ML IV SCH (10:53)
[2020-03-05] MEDS: ACETAMINOPHEN 325MG TABLET PO PRN (10:58)
[2020-03-06] VITALS (12 sets, daily range): BP systolic 102–169; BP diastolic 57–79
[2020-03-06] MEDS ORDERED: VANCOMYCIN 1 G PREMIX 200 ML IV SCH (00:30)
[2020-03-06] MEDS: HYDROCODONE/ACETAMINOPHEN 10/325MG TABLET PO PRN ×4 (00:51→21:35)
[2020-03-06] MEDS: LACTATED RINGERS 1,000 ML IV SCH (06:12)
[2020-03-06] MEDS: NITROGLYCERIN OINT 1GM/INCH UDPKT TD SCH ×2 (06:13→13:53)
[2020-03-06] MEDS: BLOOD SUGAR DIAGNOSTIC STRIP TEST SCH ×4 (06:13→17:43)
[2020-03-06] MEDS: INSULIN LISPRO 100 UNITS/ML SUBCUT SCH ×4 (06:20→17:43)
[2020-03-06 06:52] LABS: HEMATOCRIT. 35.7 % (42.0-52.0); HEMOGLOBIN. 12.2 g/dL (14.0-18.0); MEAN CORPUSCULAR HEMOGLOBIN 27.6 pg (28.0-32.0); MEAN CORPUSCULAR VOLUME 80.9 fL (80.0-94.0); MEAN PLATELET VOLUME 7.7 fl (7.4-10.4); PLATELET 219 x1000/uL (130-400); RED BLOOD CELL COUNT 4.41 mill/uL (4.7-6.1); RED CELL DISTRIBUTION WIDTH 13.5 % (11.6-14.6)
[2020-03-06 06:54] LABS: CHLORIDE 96 mEq/L (98-107)
[2020-03-06] MEDS: DOCUSATE SODIUM SUGAR FREE 100MG/10ML UDC NG SCH ×2 (08:51→17:07)
[2020-03-06] MEDS: LEVETIRACETAM 500MG PREMIX 100 ML IV SCH ×2 (08:53→21:20)
[2020-03-06] MEDS: LOSARTAN POTASSIUM 50 MG TABLET PO SCH ×2 (08:53→21:20)
[2020-03-06] MEDS: METOPROLOL TARTRATE 100MG TABLET PO SCH ×2 (08:53→21:21)
[2020-03-06] MEDS: AMLODIPINE 5MG TABLET PO SCH ×2 (08:53→21:21)
[2020-03-06] MEDS: PANTOPRAZOLE SODIUM 40 MG/VIAL IV SCH ×2 (08:54→21:20)
[2020-03-06] MEDS: INSULIN GLARGINE UD 100 UNITS/ML SYR SUBCUT SCH ×2 (10:26→21:52)
[2020-03-06] MEDS ORDERED: VANCOMYCIN 1500MG in DEXTROSE 5% WATER 250ML IV NR (11:30)
[2020-03-06] MEDS ORDERED: PIPERACILLIN/TAZOBACTAM 3.375 G/VIAL IV SCH (12:00)
[2020-03-06] MEDS: PIPERACILLIN/TAZOBACTAM 3.375 G in DEXT 5% WATER 100 ML IV SCH ×2 (12:25→17:43)
[2020-03-06 14:27] LABS: PLATELET ESTIMATE NORMAL
[2020-03-06] MEDS: SODIUM CHLORIDE 0.9% 1,000 ML IV SCH (17:43)
[2020-03-07] VITALS (12 sets, daily range): BP systolic 117–156; BP diastolic 60–83
[2020-03-07] MEDS: PIPERACILLIN/TAZOBACTAM 3.375 G in DEXT 5% WATER 100 ML IV SCH ×4 (00:08→18:31)
[2020-03-07] MEDS: VANCOMYCIN 1 G PREMIX 200 ML IV SCH ×2 (00:09→12:40)
[2020-03-07] MEDS: BLOOD SUGAR DIAGNOSTIC STRIP TEST SCH ×4 (00:09→18:48)
[2020-03-07] MEDS: INSULIN LISPRO 100 UNITS/ML SUBCUT SCH ×4 (00:25→18:48)
[2020-03-07 07:05] LABS: BASOPHILS % 0.3 % (0.0-2.0); EOSINOPHILS % 0.2 % (0.0-5.0); HEMATOCRIT. 35.7 % (42.0-52.0); HEMOGLOBIN. 12.3 g/dL (14.0-18.0); LYMPHOCYTES % 9.7 % (20.0-50.0); MEAN CORPUSCULAR HEMOGLOBIN 27.8 pg (28.0-32.0); MEAN CORPUSCULAR VOLUME 80.7 fL (80.0-94.0); MEAN PLATELET VOLUME 7.9 fl (7.4-10.4); MONOCYTES % 6.2 % (2.0-8.0); NEUTROPHILS % 83.6 % (40.0-76.0); PLATELET 206 x1000/uL (130-400); RED BLOOD CELL COUNT 4.43 mill/uL (4.7-6.1); RED CELL DISTRIBUTION WIDTH 13.4 % (11.6-14.6)
[2020-03-07 07:13] LABS: CHLORIDE 102 mEq/L (98-107)
[2020-03-07] MEDS: LEVETIRACETAM 500MG PREMIX 100 ML IV SCH ×2 (08:32→20:38)
[2020-03-07] MEDS: PANTOPRAZOLE SODIUM 40 MG/VIAL IV SCH ×2 (08:32→20:38)
[2020-03-07] MEDS: DOCUSATE SODIUM SUGAR FREE 100MG/10ML UDC NG SCH ×2 (08:32→18:48)
[2020-03-07] MEDS: AMLODIPINE 5MG TABLET PO SCH ×2 (08:32→20:39)
[2020-03-07] MEDS: LOSARTAN POTASSIUM 50 MG TABLET PO SCH ×2 (08:33→20:39)
[2020-03-07] MEDS: METOPROLOL TARTRATE 100MG TABLET PO SCH ×2 (08:33→20:38)
[2020-03-07] MEDS ORDERED: DIATR MEGLU/DIATRIZOATE SOLN 30ML PO SCH ×2 (10:30→12:15)
[2020-03-07] MEDS: INSULIN GLARGINE UD 100 UNITS/ML SYR SUBCUT SCH ×2 (10:31→21:56)
[2020-03-07] MEDS: SODIUM CHLORIDE 0.9% 1,000 ML IV SCH (14:02)
[2020-03-07] MEDS: HYDROCODONE/ACETAMINOPHEN 10/325MG TABLET PO PRN (22:06)
[2020-03-08] VITALS (12 sets, daily range): BP systolic 107–156; BP diastolic 66–90
[2020-03-08] MEDS: BLOOD SUGAR DIAGNOSTIC STRIP TEST SCH ×5 (00:11→23:18)
[2020-03-08] MEDS: PIPERACILLIN/TAZOBACTAM 3.375 G in DEXT 5% WATER 100 ML IV SCH ×4 (00:11→17:51)
[2020-03-08] MEDS: VANCOMYCIN 1 G PREMIX 200 ML IV SCH (00:49)
[2020-03-08] MEDS: INSULIN LISPRO 100 UNITS/ML SUBCUT SCH ×5 (05:54→23:17)
[2020-03-08 06:29] LABS: BASOPHILS % 0.2 % (0.0-2.0); EOSINOPHILS % 0.7 % (0.0-5.0); HEMATOCRIT. 35.8 % (42.0-52.0); HEMOGLOBIN. 12.5 g/dL (14.0-18.0); LYMPHOCYTES % 14.6 % (20.0-50.0); MEAN CORPUSCULAR HEMOGLOBIN 27.9 pg (28.0-32.0); MEAN CORPUSCULAR VOLUME 80.1 fL (80.0-94.0); MEAN PLATELET VOLUME 7.5 fl (7.4-10.4); MONOCYTES % 5.7 % (2.0-8.0); NEUTROPHILS % 78.8 % (40.0-76.0); PLATELET 225 x1000/uL (130-400); RED BLOOD CELL COUNT 4.47 mill/uL (4.7-6.1); RED CELL DISTRIBUTION WIDTH 13.5 % (11.6-14.6)
[2020-03-08 07:23] LABS: CHLORIDE 100 mEq/L (98-107)
[2020-03-08] MEDS: PANTOPRAZOLE SODIUM 40 MG/VIAL IV SCH ×2 (09:08→21:51)
[2020-03-08] MEDS: LOSARTAN POTASSIUM 50 MG TABLET PO SCH ×2 (09:08→21:51)
[2020-03-08] MEDS: METOPROLOL TARTRATE 100MG TABLET PO SCH ×2 (09:09→21:52)
[2020-03-08] MEDS: LEVETIRACETAM 500MG PREMIX 100 ML IV SCH ×2 (09:09→21:51)
[2020-03-08] MEDS: DOCUSATE SODIUM SUGAR FREE 100MG/10ML UDC NG SCH ×2 (09:09→17:51)
[2020-03-08] MEDS: AMLODIPINE 5MG TABLET PO SCH ×2 (09:15→23:15)
[2020-03-08] MEDS: INSULIN GLARGINE UD 100 UNITS/ML SYR SUBCUT SCH ×2 (09:17→23:17)
[2020-03-08] MEDS: SODIUM CHLORIDE 0.9% 1,000 ML IV SCH (09:22)
[2020-03-08] MEDS ORDERED: POTASSIUM CHLORIDE 20MEQ TABLET SR PO NR (12:00)
[2020-03-08] MEDS: ACETAMINOPHEN 325MG TABLET PO PRN (23:15)
[2020-03-08] MEDS: HYDROCODONE/ACETAMINOPHEN 10/325MG TABLET PO PRN (23:25)
[2020-03-09] VITALS (11 sets, daily range): BP systolic 107–140; BP diastolic 58–78
[2020-03-09] MEDS: PIPERACILLIN/TAZOBACTAM 3.375 G in DEXT 5% WATER 100 ML IV SCH ×4 (01:22→17:41)
[2020-03-09] MEDS: SODIUM CHLORIDE 0.9% 1,000 ML IV SCH ×2 (05:45→10:03)
[2020-03-09] MEDS: BLOOD SUGAR DIAGNOSTIC STRIP TEST SCH ×3 (06:54→17:35)
[2020-03-09] MEDS: INSULIN LISPRO 100 UNITS/ML SUBCUT SCH ×3 (06:59→17:46)
[2020-03-09] MEDS: VANCOMYCIN 750 MG PREMIX 150 ML IV SCH (07:03)
[2020-03-09] MEDS: DOCUSATE SODIUM SUGAR FREE 100MG/10ML UDC NG SCH ×2 (09:57→17:41)
[2020-03-09] MEDS: PANTOPRAZOLE SODIUM 40 MG/VIAL IV SCH ×2 (09:57→21:52)
[2020-03-09] MEDS: LEVETIRACETAM 500MG PREMIX 100 ML IV SCH ×2 (09:58→21:52)
[2020-03-09] MEDS: INSULIN GLARGINE UD 100 UNITS/ML SYR SUBCUT SCH (10:04)
[2020-03-09] MEDS: AMLODIPINE 5MG TABLET PO SCH ×2 (10:05→21:52)
[2020-03-09] MEDS: METOPROLOL TARTRATE 100MG TABLET PO SCH ×2 (10:05→21:52)
[2020-03-09] MEDS: LOSARTAN POTASSIUM 50 MG TABLET PO SCH ×2 (10:05→21:52)
[2020-03-09] MEDS: HYDROCODONE/ACETAMINOPHEN 10/325MG TABLET PO PRN ×3 (10:06→23:58)
[2020-03-10] MEDS: INSULIN GLARGINE UD 100 UNITS/ML SYR SUBCUT SCH ×3 (00:02→23:02)
[2020-03-10] MEDS: INSULIN LISPRO 100 UNITS/ML SUBCUT SCH ×5 (00:03→23:02)
[2020-03-10] MEDS: PIPERACILLIN/TAZOBACTAM 3.375 G in DEXT 5% WATER 100 ML IV SCH ×5 (00:04→23:01)
[2020-03-10] MEDS: VANCOMYCIN 750 MG PREMIX 150 ML IV SCH ×2 (00:05→18:01)
[2020-03-10] MEDS: BLOOD SUGAR DIAGNOSTIC STRIP TEST SCH ×5 (00:06→23:02)
[2020-03-10 07:01] LABS: BASOPHILS % 0.7 % (0.0-2.0); EOSINOPHILS % 2.1 % (0.0-5.0); HEMATOCRIT. 35.5 % (42.0-52.0); HEMOGLOBIN. 12.4 g/dL (14.0-18.0); LYMPHOCYTES % 21.8 % (20.0-50.0); MEAN CORPUSCULAR VOLUME 80.4 fL (80.0-94.0); MEAN PLATELET VOLUME 7.2 fl (7.4-10.4); MONOCYTES % 7.4 % (2.0-8.0); PLATELET 229 x1000/uL (130-400); RED BLOOD CELL COUNT 4.42 mill/uL (4.7-6.1); RED CELL DISTRIBUTION WIDTH 13.4 % (11.6-14.6)
[2020-03-10 07:27] LABS: CHLORIDE 99 mEq/L (98-107)
[2020-03-10 08:00] VITALS: BP 127/82
[2020-03-10] MEDS: DOCUSATE SODIUM SUGAR FREE 100MG/10ML UDC NG SCH ×2 (09:24→17:15)
[2020-03-10] MEDS: PANTOPRAZOLE SODIUM 40 MG/VIAL IV SCH ×2 (09:24→20:47)
[2020-03-10] MEDS: LEVETIRACETAM 500MG PREMIX 100 ML IV SCH ×2 (09:25→20:46)
[2020-03-10] MEDS: LOSARTAN POTASSIUM 50 MG TABLET PO SCH ×2 (09:26→20:47)
[2020-03-10] MEDS: METOPROLOL TARTRATE 100MG TABLET PO SCH ×2 (09:27→20:47)
[2020-03-10] MEDS: AMLODIPINE 5MG TABLET PO SCH ×2 (09:27→22:27)
[2020-03-10 12:00] VITALS: BP 132/76
[2020-03-10 16:00] VITALS: BP 140/77
[2020-03-10 20:00] VITALS: BP 115/77
[2020-03-10] MEDS: ACETAMINOPHEN 325MG TABLET PO PRN (22:27)
[2020-03-11] VITALS: BP 107/77
[2020-03-11 04:00] VITALS: BP 143/88
[2020-03-11] MEDS: INSULIN LISPRO 100 UNITS/ML SUBCUT SCH ×4 (05:49→23:37)
[2020-03-11] MEDS: BLOOD SUGAR DIAGNOSTIC STRIP TEST SCH ×4 (05:49→23:37)
[2020-03-11] MEDS: PIPERACILLIN/TAZOBACTAM 3.375 G in DEXT 5% WATER 100 ML IV SCH (05:50)
[2020-03-11 08:00] VITALS: BP 97/65
[2020-03-11] MEDS: PANTOPRAZOLE SODIUM 40 MG/VIAL IV SCH ×2 (08:27→21:43)
[2020-03-11] MEDS: DOCUSATE SODIUM SUGAR FREE 100MG/10ML UDC NG SCH ×2 (08:27→17:35)
[2020-03-11] MEDS: AMLODIPINE 5MG TABLET PO SCH ×2 (08:27→21:45)
[2020-03-11] MEDS: LOSARTAN POTASSIUM 50 MG TABLET PO SCH ×2 (08:28→21:43)
[2020-03-11] MEDS: LEVETIRACETAM 500MG PREMIX 100 ML IV SCH ×2 (08:28→21:45)
[2020-03-11] MEDS: METOPROLOL TARTRATE 100MG TABLET PO SCH ×2 (08:28→21:45)
[2020-03-11] MEDS: INSULIN GLARGINE UD 100 UNITS/ML SYR SUBCUT SCH ×2 (09:55→21:59)
[2020-03-11 10:00] VITALS: BP 125/79
[2020-03-11 12:00] VITALS: BP 128/72
[2020-03-11] MEDS ORDERED: VANCOMYCIN 1 G PREMIX 200 ML IV SCH (12:00)
[2020-03-11] MEDS: HYDROCODONE/ACETAMINOPHEN 5/325MG TABLET PO PRN ×2 (12:25→21:49)
[2020-03-11 16:00] VITALS: BP 133/65
[2020-03-12 03:47] VITALS: BP 126/76
[2020-03-12] MEDS: HYDROCODONE/ACETAMINOPHEN 5/325MG TABLET PO PRN ×3 (04:28→17:34)
[2020-03-12] MEDS: INSULIN LISPRO 100 UNITS/ML SUBCUT SCH ×3 (05:16→18:30)
[2020-03-12] MEDS: BLOOD SUGAR DIAGNOSTIC STRIP TEST SCH ×3 (05:16→17:24)
[2020-03-12 08:00] VITALS: BP 146/71
[2020-03-12] MEDS: METOPROLOL TARTRATE 100MG TABLET PO SCH ×2 (09:00→21:00)
[2020-03-12] MEDS: LEVETIRACETAM 500MG PREMIX 100 ML IV SCH ×2 (10:26→22:11)
[2020-03-12] MEDS: PANTOPRAZOLE SODIUM 40 MG/VIAL IV SCH ×2 (10:27→21:42)
[2020-03-12] MEDS: DOCUSATE SODIUM SUGAR FREE 100MG/10ML UDC NG SCH ×2 (10:27→17:35)
[2020-03-12] MEDS: LOSARTAN POTASSIUM 50 MG TABLET PO SCH ×2 (10:28→21:00)
[2020-03-12] MEDS: AMLODIPINE 5MG TABLET PO SCH ×2 (10:28→21:00)
[2020-03-12] MEDS: INSULIN GLARGINE UD 100 UNITS/ML SYR SUBCUT SCH ×2 (10:38→22:12)
[2020-03-12 12:00] VITALS: BP 131/79
[2020-03-12 16:00] VITALS: BP 111/70
[2020-03-12 18:00] VITALS: BP 105/60
[2020-03-12 20:00] VITALS: BP 103/54
[2020-03-13] VITALS: BP 132/68
[2020-03-13] MEDS: HYDROCODONE/ACETAMINOPHEN 5/325MG TABLET PO PRN ×2 (00:51→17:12)
[2020-03-13] MEDS: INSULIN LISPRO 100 UNITS/ML SUBCUT SCH ×4 (01:01→18:13)
[2020-03-13 04:00] VITALS: BP_SYST 133; BP_SYST 145; BP_DIAS 67; BP_DIAS 90
[2020-03-13] MEDS: BLOOD SUGAR DIAGNOSTIC STRIP TEST SCH ×4 (06:00→17:12)
[2020-03-13 06:55] LABS: BASOPHILS % 0.6 % (0.0-2.0); EOSINOPHILS % 1.8 % (0.0-5.0); HEMATOCRIT. 37.5 % (42.0-52.0); HEMOGLOBIN. 12.9 g/dL (14.0-18.0); LYMPHOCYTES % 25.4 % (20.0-50.0); MEAN CORPUSCULAR HEMOGLOBIN 28.1 pg (28.0-32.0); MEAN CORPUSCULAR VOLUME 81.2 fL (80.0-94.0); MEAN PLATELET VOLUME 7.1 fl (7.4-10.4); MONOCYTES % 9.2 % (2.0-8.0); PLATELET 281 x1000/uL (130-400); RED BLOOD CELL COUNT 4.61 mill/uL (4.7-6.1); RED CELL DISTRIBUTION WIDTH 13.7 % (11.6-14.6)
[2020-03-13 07:05] LABS: CHLORIDE 102 mEq/L (98-107)
[2020-03-13 08:00] VITALS: BP 114/59
[2020-03-13] MEDS: AMLODIPINE 5MG TABLET PO SCH ×2 (08:48→21:00)
[2020-03-13] MEDS: DOCUSATE SODIUM SUGAR FREE 100MG/10ML UDC NG SCH ×2 (08:49→17:12)
[2020-03-13] MEDS: METOPROLOL TARTRATE 100MG TABLET PO SCH ×2 (08:49→21:00)
[2020-03-13] MEDS: LOSARTAN POTASSIUM 50 MG TABLET PO SCH ×2 (08:49→21:00)
[2020-03-13] MEDS: PANTOPRAZOLE SODIUM 40 MG/VIAL IV SCH ×2 (08:49→21:00)
[2020-03-13] MEDS: LEVETIRACETAM 500MG PREMIX 100 ML IV SCH (08:50)
[2020-03-13] MEDS: INSULIN GLARGINE UD 100 UNITS/ML SYR SUBCUT SCH ×2 (09:24→21:15)
[2020-03-13 12:00] VITALS: BP 129/66
[2020-03-13 16:00] VITALS: BP 108/79
[2020-03-13 20:00] VITALS: BP 124/69
[2020-03-13] MEDS: LEVETIRACETAM 500MG TABLET PO SCH (21:00)
[2020-03-14] VITALS: BP 147/72
[2020-03-14] MEDS: BLOOD SUGAR DIAGNOSTIC STRIP TEST SCH ×4 (00:31→17:37)
[2020-03-14 04:00] VITALS: BP 120/69
[2020-03-14] MEDS: INSULIN LISPRO 100 UNITS/ML SUBCUT SCH ×4 (06:42→17:37)
[2020-03-14 08:00] VITALS: BP 117/64
[2020-03-14] MEDS: LEVETIRACETAM 500MG TABLET PO SCH ×2 (08:59→20:43)
[2020-03-14] MEDS: PANTOPRAZOLE SODIUM 40 MG/VIAL IV SCH ×2 (08:59→20:42)
[2020-03-14] MEDS: DOCUSATE SODIUM SUGAR FREE 100MG/10ML UDC NG SCH ×2 (08:59→17:36)
[2020-03-14] MEDS: AMLODIPINE 5MG TABLET PO SCH ×2 (09:00→20:43)
[2020-03-14] MEDS: METOPROLOL TARTRATE 100MG TABLET PO SCH ×2 (09:00→20:43)
[2020-03-14] MEDS: LOSARTAN POTASSIUM 50 MG TABLET PO SCH (09:00)
[2020-03-14] MEDS: INSULIN GLARGINE UD 100 UNITS/ML SYR SUBCUT SCH ×2 (09:50→22:52)
[2020-03-14 12:00] VITALS: BP 114/70
[2020-03-14 16:00] VITALS: BP 102/56
[2020-03-14] MEDS: HYDROCODONE/ACETAMINOPHEN 5/325MG TABLET PO PRN (17:37)
[2020-03-14 20:00] VITALS: BP 126/59
[2020-03-14] MEDS: LOSARTAN POTASSIUM 25 MG TABLET PO SCH (20:43)
[2020-03-15] VITALS (7 sets, daily range): BP systolic 100–124; BP diastolic 53–75
[2020-03-15] MEDS: BLOOD SUGAR DIAGNOSTIC STRIP TEST SCH ×5 (00:51→23:22)
[2020-03-15] MEDS: INSULIN LISPRO 100 UNITS/ML SUBCUT SCH ×5 (06:00→23:23)
[2020-03-15] MEDS: METOPROLOL TARTRATE 100MG TABLET PO SCH ×2 (09:00→21:49)
[2020-03-15] MEDS: AMLODIPINE 5MG TABLET PO SCH ×2 (09:00→21:49)
[2020-03-15] MEDS: LOSARTAN POTASSIUM 25 MG TABLET PO SCH ×2 (09:00→21:49)
[2020-03-15] MEDS: DOCUSATE SODIUM SUGAR FREE 100MG/10ML UDC NG SCH ×2 (09:20→16:17)
[2020-03-15] MEDS: PANTOPRAZOLE SODIUM 40 MG/VIAL IV SCH ×2 (09:20→21:51)
[2020-03-15] MEDS: LEVETIRACETAM 500MG TABLET PO SCH ×2 (09:20→21:49)
[2020-03-15] MEDS: INSULIN GLARGINE UD 100 UNITS/ML SYR SUBCUT SCH ×2 (09:29→22:32)
[2020-03-15] MEDS ORDERED: BARIUM SULFATE 176 GM SUSP.RECON ONE (10:37)
[2020-03-15] MEDS: HYDROCODONE/ACETAMINOPHEN 5/325MG TABLET PO PRN (13:19)
[2020-03-16] MEDS: HYDROCODONE/ACETAMINOPHEN 5/325MG TABLET PO PRN ×2 (00:10→09:25)
[2020-03-16 05:26] VITALS: BP 106/54
[2020-03-16] MEDS: INSULIN LISPRO 100 UNITS/ML SUBCUT SCH ×3 (06:00→18:00)
[2020-03-16] MEDS: BLOOD SUGAR DIAGNOSTIC STRIP TEST SCH ×3 (06:59→17:56)
[2020-03-16 08:00] VITALS: BP 120/67
[2020-03-16] MEDS: DOCUSATE SODIUM SUGAR FREE 100MG/10ML UDC NG SCH ×2 (09:12→17:00)
[2020-03-16] MEDS: PANTOPRAZOLE SODIUM 40 MG/VIAL IV SCH ×2 (09:12→21:41)
[2020-03-16] MEDS: AMLODIPINE 5MG TABLET PO SCH ×2 (09:13→21:41)
[2020-03-16] MEDS: METOPROLOL TARTRATE 100MG TABLET PO SCH ×2 (09:13→21:41)
[2020-03-16] MEDS: LEVETIRACETAM 500MG TABLET PO SCH ×2 (09:13→21:41)
[2020-03-16] MEDS: LOSARTAN POTASSIUM 25 MG TABLET PO SCH ×2 (09:13→21:41)
[2020-03-16] MEDS: INSULIN GLARGINE UD 100 UNITS/ML SYR SUBCUT SCH ×2 (09:44→21:53)
[2020-03-16 12:00] VITALS: BP 103/49
[2020-03-16 16:00] VITALS: BP 97/55
[2020-03-16 20:00] VITALS: BP 117/70
[2020-03-17] VITALS: BP 103/61
[2020-03-17] MEDS: BLOOD SUGAR DIAGNOSTIC STRIP TEST SCH ×5 (00:17→23:04)
[2020-03-17] MEDS: LORAZEPAM 1MG TABLET PO PRN (00:17)
[2020-03-17 04:00] VITALS: BP 114/69
[2020-03-17] MEDS: INSULIN LISPRO 100 UNITS/ML SUBCUT SCH ×5 (07:44→23:04)
[2020-03-17 08:00] VITALS: BP 118/45
[2020-03-17] MEDS: PANTOPRAZOLE SODIUM 40 MG/VIAL IV SCH ×2 (10:07→21:23)
[2020-03-17] MEDS: DOCUSATE SODIUM SUGAR FREE 100MG/10ML UDC NG SCH ×2 (10:07→17:47)
[2020-03-17] MEDS: LEVETIRACETAM 500MG TABLET PO SCH ×2 (10:07→21:22)
[2020-03-17] MEDS: LOSARTAN POTASSIUM 25 MG TABLET PO SCH ×2 (10:11→21:22)
[2020-03-17] MEDS: METOPROLOL TARTRATE 100MG TABLET PO SCH ×2 (10:11→21:23)
[2020-03-17] MEDS: AMLODIPINE 5MG TABLET PO SCH ×2 (10:12→21:23)
[2020-03-17] MEDS: INSULIN GLARGINE UD 100 UNITS/ML SYR SUBCUT SCH ×2 (10:25→23:07)
[2020-03-17 12:00] VITALS: BP 107/60
[2020-03-17 16:00] VITALS: BP 102/55
[2020-03-17 20:00] VITALS: BP 112/69
[2020-03-18] VITALS: BP 115/65
[2020-03-18 04:00] VITALS: BP 114/67
[2020-03-18] MEDS: INSULIN LISPRO 100 UNITS/ML SUBCUT SCH ×3 (06:00→18:51)
[2020-03-18] MEDS: BLOOD SUGAR DIAGNOSTIC STRIP TEST SCH ×3 (06:00→17:39)
[2020-03-18] MEDS: LOSARTAN POTASSIUM 25 MG TABLET PO SCH ×2 (08:58→21:46)
[2020-03-18] MEDS: LEVETIRACETAM 500MG TABLET PO SCH ×2 (08:58→21:46)
[2020-03-18] MEDS: DOCUSATE SODIUM SUGAR FREE 100MG/10ML UDC NG SCH ×2 (08:58→17:46)
[2020-03-18] MEDS: PANTOPRAZOLE SODIUM 40 MG/VIAL IV SCH ×2 (08:58→21:46)
[2020-03-18] MEDS: AMLODIPINE 5MG TABLET PO SCH ×2 (08:58→21:45)
[2020-03-18] MEDS: METOPROLOL TARTRATE 100MG TABLET PO SCH ×2 (08:59→21:45)
[2020-03-18] MEDS: ACETAMINOPHEN 325MG TABLET PO PRN ×2 (09:02→15:59)
[2020-03-18] MEDS: INSULIN GLARGINE UD 100 UNITS/ML SYR SUBCUT SCH ×2 (09:37→22:29)
[2020-03-18 16:00] VITALS: BP 112/67
[2020-03-18] MEDS ORDERED: LOSA25TA3 PO (16:20)
[2020-03-18] MEDS ORDERED: KEPP500 PO (16:20)
[2020-03-18] MEDS ORDERED: AMLO5TAB88 PO (16:20)
[2020-03-18] MEDS ORDERED: LANTUSUD SUBCUT (16:20)
[2020-03-18] MEDS ORDERED: DOCU50LI14 NG (16:20)
[2020-03-18 20:00] VITALS: BP 112/62
[2020-03-18] MEDS: LORAZEPAM 1MG TABLET PO PRN (22:18)
[2020-03-19] VITALS: BP 110/60
[2020-03-19 04:00] VITALS: BP 99/54
[2020-03-19 08:00] VITALS: BP 135/76
[2020-03-19] MEDS: METOPROLOL TARTRATE 100MG TABLET PO SCH (08:38)
[2020-03-19] MEDS: LEVETIRACETAM 500MG TABLET PO SCH (08:38)
[2020-03-19] MEDS: DOCUSATE SODIUM SUGAR FREE 100MG/10ML UDC NG SCH (08:38)
[2020-03-19] MEDS: LOSARTAN POTASSIUM 25 MG TABLET PO SCH (08:38)
[2020-03-19] MEDS: AMLODIPINE 5MG TABLET PO SCH (08:38)
[2020-03-19] MEDS: PANTOPRAZOLE SODIUM 40 MG/VIAL IV SCH (08:39)
[2020-03-19] MEDS: INSULIN GLARGINE UD 100 UNITS/ML SYR SUBCUT SCH (11:46)
[2020-03-19 12:00] VITALS: BP 124/70
[2020-03-19] MEDS: INSULIN LISPRO 100 UNITS/ML SUBCUT SCH ×2 (12:00)
[2020-03-19] MEDS: BLOOD SUGAR DIAGNOSTIC STRIP TEST SCH ×2 (12:29)
[2020-03-19 14:09] VITALS: BP 124/70
== END 2020-03-19 15:55 | disposition home health service (06) | DRG 25 ==
LOC: ER 18:30 → EDBEDREQTM 22:18 → EDBEDREQSVC 22:18 → ENRESERV 22:20 → MICUNO 02-21 00:03 → 5EST 02-28 23:00 → 6EST 03-12 18:00
PROVIDERS: ADMIT Internal Medicine; ATTEND Internal Medicine
PROC: 00B10ZZ Excision of Cerebral Meninges, Open Approach (ICD-10-PCS; principal; 2020-02-23)
PROC: 00U207Z Supplement Dura Mater with Autologous Tissue Substitute, Open Approach (ICD-10-PCS; 2020-02-23)
PROC: 0DH68UZ Insertion of Feeding Device into Stomach, Via Natural or Artificial Opening Endoscopic (ICD-10-PCS; 2020-03-03)
DX: D32.0 Benign neoplasm of cerebral meninges (principal); G93.6 Cerebral edema; I63.9 Cerebral infarction, unspecified; G81.94 Hemiplegia, unspecified affecting left nondominant side; E87.2 Acidosis; G93.40 Encephalopathy, unspecified; E87.1 Hypo-osmolality and hyponatremia; K94.22 Gastrostomy infection; L03.311 Cellulitis of abdominal wall; I10 Essential (primary) hypertension; E11.65 Type 2 diabetes mellitus with hyperglycemia; R26.89 Other abnormalities of gait and mobility; E78.5 Hyperlipidemia, unspecified; D64.9 Anemia, unspecified; E87.6 Hypokalemia; K29.70 Gastritis, unspecified, without bleeding; R47.1 Dysarthria and anarthria; I25.10 Atherosclerotic heart disease of native coronary artery without angina pectoris; E87.8 Other disorders of electrolyte and fluid balance, not elsewhere classified; R13.12 Dysphagia, oropharyngeal phase; R29.810 Facial weakness; Z20.828 Contact with and (suspected) exposure to other viral communicable diseases; Z82.49 Family history of ischemic heart disease and other diseases of the circulatory system; I25.2 Old myocardial infarction; Z86.011 Personal history of benign neoplasm of the brain; Z86.73 Personal history of transient ischemic attack (TIA), and cerebral infarction without residual deficits; Z87.891 Personal history of nicotine dependence; Z79.899 Other long term (current) drug therapy
CPT/HCPCS: 36415; 36600; 70496; 70498; 70553; 71045; 74150; 74230; 80048; 80053; 80061; 80076; 80202; 80305; 80320; 81003; 82140; 82375; 82550; 82805; 82962; 83036; 83605; 83735; 83880; 84100; 84443; 84484; 85025; 85027; 86850; 86900; 87426; 88305; 88331; 92523; 92610; 92611; 93005; 93306; 93970; 97116; 97162; 97166; 97530; 97535; 99285; A6261; A9577; C1713; C1893; C9113; J0360; J0690; J1100; J1170; J1815; J1953; J2250; J2270; J2405; J2543; J2704; J3010; J3370; J3475; J3480; J3490; J7030; J7050; J7060; J7120; P9041; P9047; Q9963; Q9967; G0480